=== PATIENT | female | born 1980 | race Caucasian/White ===

== ENCOUNTER 2017-03-10 21:03 | Emergency (ER) | payer BC, OTHER ==
[2017-03-10 21:10] VITALS: BP 129/63; PULSE 104; TEMP 97.8; BMI 25.4
--- NOTE | 2017-03-10 21:37 | PDOC ---
History of Present Illness - General Chief Complaint: Pain, Acute Stated Complaint: PAIN Time Seen by Provider: 03/10/17 21:22 History Source: Patient Exam Limitations: No Limitations - History of Present Illness Initial Comments: 03/10/17 21:32 The patient is a 36F with a PMH of HTN and hypothyroidism who presents to the ED with complaints of abdominal pain. The patient states that her abdominal pain started 2 days ago, comes and goes, and is described as diffuse and throbbing, nonradiating. She also endorses watery diarrhea, nonbloody, and NBNB emesis. She initially thought it was a "stomach bug" but after not being resolved and worsening, she decided to come to the ED. She is unsure if she is . She has no history of stones. She denies any hematuria. Past History - Past Medical History Allergies/Adverse Reactions: Allergies Allergy/AdvReac Type Severity Reaction Status Date / Time No Known Allergies Allergy Verified 03/10/17 21:11 Home Medications: Ambulatory Orders Alprazolam [Xanax] 0.5 mg PO DAILY PRN 03/10/17 Hydrochlorothiazide 5 mg PO DAILY 03/10/17 Metformin HCl [Metformin HCl ER] 1,000 mg PO DAILY 03/10/17 Synthroid 65 mcg PO DAILY 03/10/17 Ondansetron [Zofran *Odt*] 8 mg SL TID #30 od.tablet 03/11/17 COPD: No HTN: Yes Thyroid Disease: Yes Other medical history: PCOS - Suicide/Smoking/Psychosocial Hx Smoking History: Never smoked Hx Alcohol Use: No Drug/Substance Use Hx: No Review of Systems - Review of Systems Able to Perform ROS?: Yes Comments:: 03/10/17 23:48 GENERAL/CONSTITUTIONAL: No fever or chills. No weakness. HEAD, EYES, EARS, NOSE AND THROAT: No change in vision. No ear pain or discharge. No sore throat. GASTROINTESTINAL: Positive for nausea, vomiting, diarrhea, and abdominal pain. No constipation. GENITOURINARY: No dysuria, frequency, hematuria, or change in urination. CARDIOVASCULAR: No chest pain, palpitations, or lightheadedness. RESPIRATORY: No cough, wheezing, shortness of breath, or hemoptysis. MUSCULOSKELETAL: No joint or muscle swelling or pain. No neck or back pain. SKIN: No rash or lesions. NEUROLOGIC: No headache, numbness, tingling, weakness, loss of consciousness, or change in strength/sensation. ENDOCRINE: No increased thirst. No abnormal weight change. HEMATOLOGIC/LYMPHATIC: No anemia, easy bleeding, or history of blood clots. ALLERGIC/IMMUNOLOGIC: No hives or skin allergy. Is the patient limited Persian proficient: No *Physical Exam - Vital Signs Last Vital Signs Temp Pulse Resp BP Pulse Ox 97.8 F 104 H 18 129/63 99 03/10/17 21:07 03/10/17 21:07 03/10/17 21:07 03/10/17 21:07 03/10/17 21:07 - Physical Exam Comments: 03/10/17 23:52 GENERAL: Well developed, well nourished. Awake and alert. No acute distress. HEENT: Normocephalic, atraumatic. Hearing grossly normal. Dry mucous membranes. NECK: Supple. Full ROM. No JVD. Carotid pulses 2+ and symmetric, without bruits. No thyromegaly. No lymphadenopathy. CARDIOVASCULAR: Regular rate and rhythm. No murmurs, rubs, or gallops. Distal pulses are 2+ and symmetric. PULMONARY: No evidence of respiratory distress. Lungs clear to auscultation bilaterally. No wheezing, rales or rhonchi. ABDOMINAL: Soft. Diffuse tenderness. No rebound or guarding. No organomegaly. Normoactive bowel sounds. GENITOURINARY: No CVA tenderness bilaterally. MUSCULOSKELETAL: Normal range of motion at all joints. No bony deformities or tenderness. EXTREMITIES: No cyanosis. No clubbing. No edema. No calf tenderness. SKIN: Warm and dry. Normal capillary refill. No rashes. No jaundice. NEUROLOGICAL: Alert, awake, appropriate. Cranial nerves 2-12 intact. Gait is normal without ataxia. PSYCHIATRIC: Cooperative. Good eye contact. Appropriate mood and affect. ED Treatment Course - LABORATORY CBC & Chemistry Diagram: 03/10/17 21:57 03/10/17 21:57 Medical Decision Making - Medical Decision Making 03/10/17 23:52 The patient is a 36F with a PMH of HTN and hypothyroidism who presents to the ED with complaints of abdominal pain likely 2/2 to gastroenteritis. I am sending a u-preg to rule out ectopic and UA. Will dispo patient based on results. UA not indicative of UTI. No recent abx use so I am not concerned for C. diff colitis. Pending u-preg. Giving the patient fluids, zofran, and pepcid. 03/11/17 00:06 Patient signed out to Dr. Rosario, pending upreg. *DC/Admit/Observation/Transfer Diagnosis at time of Disposition: Viral gastroenteritis Cephalgia Qualifiers: Headache type: unspecified Headache chronicity pattern: acute headache Intractability: not intractable Qualified Code(s): R51 - Headache - Discharge Dispostion Disposition: HOME Condition at time of disposition: Unchanged/Unknown - Prescriptions Prescriptions: Ondansetron [Zofran *Odt*] 8 mg SL TID #30 od.tablet - Referrals Referrals: Manuel Verde MD [Primary Care Provider] - - Patient Instructions Printed Discharge Instructions: DI for Viral Gastroenteritis -- Adult, DI for Headache Additional Instructions: Annika- Sorry that you are not feeling well. Use the Zofran for nausea or vomiting.... it just dissolves on your tongue. Follow up with Dr. Verde, return to us if worse or new symptoms occur. Best- Dr. Rosario - Post Discharge Activity
[2017-03-10] MEDS ORDERED: FAMOTIDINE 20 MG/50 ML IVPB 20 MG/50 ML MG IVPB ONE ×2 (21:39→21:47)
[2017-03-10] MEDS ORDERED: SODIUM CHLORIDE 0.9% 1000 ML INFUS.BAG IV ONE (21:39)
[2017-03-10] MEDS ORDERED: ONDANSETRON 4 MG/2 ML VIAL IVPUSH ONE (21:39)
--- NOTE | 2017-03-10 21:39 | PDOC ---
Attending Attestation - Resident Resident Name: Tommy Laureano - ED Attending Attestation I have performed the following: I have examined & evaluated the patient, The case was reviewed & discussed with the resident, I agree w/resident's findings & plan, Exceptions are as noted - HPI HPI: 03/10/17 21:38 Vomiting, diarrhea and generalized abdominal pain - Physicial Exam PE: 03/10/17 21:38 VSS/NAD/ - Medical Decision Making 03/10/17 21:[address] Laureano's Assessment and Plan 03/11/17 00:42 Patient does not want to wait for test. Wants to go home and take her own migraine medicine Discharge Disposition - Diagnosis Viral gastroenteritis Cephalgia Qualifiers: Headache type: unspecified Headache chronicity pattern: acute headache Intractability: not intractable Qualified Code(s): R51 - Headache - Discharge Dispostion Disposition: HOME Condition at time of disposition: Unchanged/Unknown Admit: No - Referrals Referrals: Manuel Verde MD [Primary Care Provider] - - Patient Instructions Printed Discharge Instructions: DI for Viral Gastroenteritis -- Adult, DI for Headache Additional Instructions: Annika- Sorry that you are not feeling well. Use the Zofran for nausea or vomiting.... it just dissolves on your tongue. Follow up with Dr. Verde, return to us if worse or new symptoms occur. Moi- Dr. Rosario - Post Discharge Activity
[2017-03-10] MEDS ORDERED: ONDANSETRON 4 MG/2 ML VIAL ONE (21:47)
[2017-03-10 21:51] LABS: URINE APPEARANCE SLCLOUDY; URINE BILIRUBIN NEGATIVE (NEGATIVE); URINE BLOOD 2+ (NEGATIVE); URINE COLOR DKYELLOW; URINE GLUCOSE (UA) NEGATIVE (NEGATIVE); URINE KETONE TRACE (NEGATIVE); URINE LEUK ESTERASE NEGATIVE (NEGATIVE); URINE NITRITE NEGATIVE (NEGATIVE); URINE PROTEIN NEGATIVE (NEGATIVE); URINE UROBILINOGEN NEGATIVE mg/dL (0.2-1.0)
[2017-03-10 21:57] LABS: URINE BACTERIA RARE /hpf (NONE SEEN); URINE MUCUS FEW; URINE RBC 6 /hpf (0-3); URINE WBC 3 /hpf (3-5)
[2017-03-10 22:19] LABS: BASO % 0.5 % (0-2.0); EOS % 0.8 % (0-4.5); LYMPH # 1.7 (8-40); MCH 30.6 pg (25.7-33.7); MCHC 33.4 g/dl (32.0-36.0); MEAN CELL VOLUME 91.6 fl (80-96); MEAN PLT VOLUME 8.6 fl (7.5-11.1); MONO # 0.8 # (3.8-10.2); NEUT # 3.8 # (42.8-82.8); NEUT % 59.8 % (42.8-82.8); PLATELET COUNT 289 K/MM3 (134-434); RDW 13.9 % (11.6-15.6); WHITE BLOOD COUNT 6.3 K/mm3 (4.0-10.0)
[2017-03-10] MEDS ORDERED: ACETAMINOPHEN 325 MG TABLET (FP) ONE (22:34)
[2017-03-10 22:44] LABS: ALBUMIN 3.2 g/dl (3.4-5.0); ALK PHOS 62 U/L (45-117); ANION GAP 4 (8-16); BILIRUBIN,TOTAL 0.3 mg/dL (0.2-1.0); CALCIUM 8.5 mg/dL (8.5-10.1); CO2 33 mmol/L (21-32); CREATININE 0.7 mg/dL (0.55-1.02); GLUCOSE,RANDOM 114 mg/dL (74-106); SGOT/AST 21 U/L (15-37); SGPT/ALT 35 U/L (12-78); TOT PROT 6.2 g/dl (6.4-8.2)
[2017-03-10] MEDS ORDERED: ACETAMINOPHEN 325 MG TABLET (FP) PO ONE (22:59)
[2017-03-10 23:38] LABS: URINE LEUK ESTERASE Negative (NEGATIVE)
== END 2017-03-11 00:56 | disposition home or self-care (01) ==
LOC: JER 21:03
PROC: 3E033GC Introduction of Other Therapeutic Substance into Peripheral Vein, Percutaneous Approach (ICD-10-PCS; principal; 2017-03-10)
DX: A08.4 Viral intestinal infection, unspecified (principal); B97.89 Other viral agents as the cause of diseases classified elsewhere; R51 Headache; I10 Essential (primary) hypertension; E03.9 Hypothyroidism, unspecified; E28.2 Polycystic ovarian syndrome
CPT/HCPCS: 36415; 80053; 81003; 81015; 84703; 85025; 99283-25